=== PATIENT | male | born 1985 ===

== ENCOUNTER 2017-01-08 14:42 | Emergency (ER) | payer MEDICAID ==
[2017-01-08 15:02] VITALS: BP 136/75; PULSE 55; RESP 16; TEMP 98; O2SAT 100
[2017-01-08] MEDS ORDERED: Naproxen 500 MG TAB PO STA (15:23)
[2017-01-08] MEDS ORDERED: Naproxen 500 MG TAB PO ONE (15:40)
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
--- NOTE | 2017-01-08 17:18 | RAD ---
PROCEDURE: Radiographs of the Right Shoulder HISTORY: shoulder injury COMPARISON: No prior. FINDINGS: BONES: Normal. No fracture. JOINTS: Normal. Glenohumeral and acromioclavicular joints preserved. No osteoarthritis. SOFT TISSUES: Normal. OTHER FINDINGS: None. IMPRESSION: Normal radiographs of the right shoulder.
== END 2017-01-08 16:29 | disposition home or self-care (01) ==
LOC: H.ER 14:42
DX: S43.401A Unspecified sprain of right shoulder joint, initial encounter (principal); W19.XXXA Unspecified fall, initial encounter; Y92.89 Other specified places as the place of occurrence of the external cause